=== PATIENT | female | born 2000 | race Caucasian/White ===

== ENCOUNTER 2023-06-02 10:39 | Emergency (ER) | payer BC, SELFPAY ==
[2023-06-02] VITALS (26 sets, daily range): BP systolic 113–126; BP diastolic 68–83; PULSE 78–103; RESP 11–27; TEMP 36.8; O2SAT 95–100
--- NOTE | ~2023-06-02 | XR_ITS ---
EXAMINATION: XR chest 2V DATE: 06/02/2023 13:16 INDICATION: Left-sided chest pain TECHNIQUE: PA and lateral views of the chest are obtained. COMPARISON: None available FINDINGS: The lungs are free of acute opacities. No pleural effusion or pneumothorax. The cardiomedia stinal silhouette is normal. There is mild levocurvature of the upper thoracic spine. IMPRESSION: 1. No acute cardiopulmonary abnormality. Reviewed, dictated and finalized at location B. T NURSE PRACTITIONER
--- NOTE | 2023-06-02 10:42 | ECG_ITS ---
Measurements Intervals [place] Rate: 89 P: 65 VT: 140 QRS: 66 QRSD: 84 T: 44 QT: 318 QTc: 388 Interpretive Statements SINUS RHYTHM OTHERWISE NORMAL ECG NO PREVIOUS ECG AVAILABLE FOR COMPARISON Electronically Signed On 06-02-2023 12:50:41 FINANCIAL PROCESSING CLERK by Berry Hernandez M.D.
--- NOTE | 2023-06-02 12:38 | ED.CHESTPAIN ---
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 She states she has been having chest pain intermittently for the last 2 weeks. This all began when she was driving and started feeling what felt similar to a panic attack. She notes that she felt flushed and had a racing heart. she then pulled over to the side of the road and symptoms seemed to self resolve after 20 minutes. Although she initially suspected that this was the panic attack it seems to have been stronger and a bit different in nature than her normal panic attacks. Since that time 2 weeks ago she has been having some intermittent chest pains. She notes that they are left-sided and seemed to radiate to her mid chest and right upper chest. she denies any associated shortness of breath or lightheadedness. She notes that they typically occur about twice a day and self resolve after 20 minutes. No exacerbating or alleviating symptoms. There is no common trend of what she is doing when the symptoms begin. She does note a chronic cough that has been present since October. She has swelling of her primary care doctor regarding this and they have noted that she likely has asthma and some allergies. She is using an inhaler and some [id number] anti tussive. This cough has not changed recently. No family history of sudden unexplained at a young age, no personal or family history of PE/DVT. No recent long car rides, OCP use, surgeries, or smoking. No prior cardiac history. Related Data Allergies Allergy/AdvReac Type Severity Reaction Status Date / Time cefprozil [From Cefzil] Allergy Unknown Verified 06/02/23 12:57 Review of Systems Review of Systems: All systems reviewed & are unremarkable except as noted in HPI and below Exam Narrative: GENERAL: Well-appearing, well-nourished, and in no acute distress. HEAD: Normocephalic, atraumatic. EYES: PERRLA and EOMI. ENT: Nares clear. Mucous membranes moist. NECK: Supple. CHEST: Clear to auscultation. No respiratory distress. HEART: Regular rate and rhythm. Normal peripheral pulses. ABDOMEN: Soft, nontender, nondistended. EXTREMITIES: Normal range of motion. No edema. SKIN: Warm, dry, no rash. NEURO: No focal deficits. Alert and oriented x3. PSYCH: Normal mood and affect. Course Course Emergency Course: Chart review performed. She is here for intermittent chest pain and palpitations for 2 weeks. Triage vitals grossly normal, HR 100. Patient seen and evaluated. Patient is asymptomatic at this time. Differentials include ACS, MSK pain, less likely PE, pneumonia. Will do ACS workup as well as CXR. Patient low risk for PE. Given HR of 100 in triage, cannot apply PERC rule. Will do screening D-dimer. Lab work reviewed. No leukocytosis, electrolytes within normal limits, normal renal and liver function. Initial troponin negative. Repeat troponin and EKG unremarkable. Toradol ordered for her pain. HEART score of 0. The results of pertinent diagnostic studies and exam findings were discussed. The patient?s provisional diagnosis and plan of care were discussed with the patient and present family. The patient and/or present family expressed understanding of the diagnosis and plan. The nurse was instructed to provide written instructions and appropriate follow-up information. The patient understands their need and responsibility to obtain additional follow-up as instructed. The risks of medications administered and prescribed were discussed with the patient and family present. Vital Signs Vital signs: Vital Signs Temperature 98.2 F 06/02/23 10:44 Pulse Rate 100 06/02/23 10:44 Respiratory Rate 16 06/02/23 10:44 Blood Pressure 126/74 06/02/23 10:4
[2023-06-02 12:59] LABS: Basophils Absolute Auto 0.1 K/mm3 (0.0-0.1); Basophils Percent Auto 0.7 % (0.2-1.2); Eosinophils Absolute Auto 0.1 K/mm3 (0-0.3); Eosinophils Percent Auto 0.8 % (0-4.4); Hematocrit 45.9 % (37.0-47.0); Hemoglobin 15.4 g/dL (12.0-15.0); Immature Granulocyte Absolute 0.03 K/mm3 (0.00-0.031); Immature Granulocyte Percent A 0.4 % (0-0.5); Lymphocytes Absolute Auto 1.63 K/mm3 (0.9-3.2); Lymphocytes Percent Auto 21.8 % (18.3-44.2); Mean Corpuscular HGB Conc 33.6 g/dl (32-36); Mean Corpuscular Hemoglobin 29.5 pg (26-34); Mean Corpuscular Volume 87.9 fl (80-100); Mean Platelet Volume 9.6 fl (7.4-10.4); Monocytes Absolute Auto 0.5 K/mm3 (0.1-0.6); Monocytes Percent Auto 6.3 % (2.6-8.5); Neutrophils Absolute Auto 5.2 K/mm3 (1.3-6.7); Platelet Count Result 400 k/mm3 (150-375); Red Blood Count 5.22 M/mm3 (4.2-5.4); Red Cell Distribution Width 12.9 % (11.5-14.5); White Blood Count 7.5 K/mm3 (4.5-10.0)
[2023-06-02 13:11] LABS: Partial Thromboplastin Time 31.2 SECONDS (22.3-36.8); Prothrombin Time 13.6 Seconds (11.1-14.7)
[2023-06-02 13:12] LABS: Alanine Aminotransferase 25 U/L (6-35); Albumin Level 4.9 g/dL (3.5-5.1); Alkaline Phosphatase 103 U/L (38-126); Anion Gap 10 mmol/L (8-16); Aspartate Amino Transferase 30 U/L (14-36); Blood Urea Nitrogen 9 mg/dL (7-17); Calcium 10.3 mg/dL (8.4-10.2); Carbon Dioxide 22 mmol/L (22-30); Chloride 105 mmol/L (98-107); Estimated CRCL calculation 100 ml/min; Estimated Glomerular Filt Rate > 60; Glucose 102 mg/dL (65-110); Lipase 87 U/L (23-300); Sodium 137 mmol/L (137-145)
[2023-06-02 13:23] LABS: Troponin I < 0.012 ng/mL (0.000-0.034)
[2023-06-02 13:35] LABS: D Dimer < 0.27 ug/mL (<0.48)
[2023-06-02 14:05] LABS: Influenza A QL RT-PCR Negative (Negative); Influenza B QL RT-PCR Negative (Negative); RSV RNA, RT-PCR Negative (Negative); SARS-CoV-2 RNA PCR Negative (Negative)
--- NOTE | 2023-06-02 15:51 | ECG_ITS ---
Measurements Intervals [place] Rate: 79 P: 37 MI: 149 QRS: 62 QRSD: 82 T: 36 QT: 334 QTc: 383 Interpretive Statements SINUS RHYTHM NONSPECIFIC T-WAVE ABNORMALITY ABNORMAL ECG COMPARED TO ECG 06/02/2023 10:51:01 NO SIGNIFICANT CHANGES Electronically Signed On 06-03-2023 16:49:40 QC ANALYST by Berry Hernandez M.D.
[2023-06-02 16:16] LABS: Troponin I < 0.012 ng/mL (0.000-0.034)
[2023-06-02] MEDS: KETOROLAC 15 MG/ML VIAL (*BKC) IV PUSH (16:21)
== END 2023-06-02 16:31 | disposition home or self-care (01) ==
PROVIDERS: Emergency Medicine; Emergency Provider Student in an Organized Health Care Education/Training Program
DX: R07.89 Other chest pain (principal)
CPT/HCPCS: 36415; 71046; 80053; 81025; 83690; 84484; 85025; 85380; 85610; 85730; 87637; 93005; 96374; 99284; J1885